=== PATIENT | female | born 1975 | race Two or more races ===

== ENCOUNTER 2019-04-12 21:13 | Emergency (ER) | payer SELFPAY ==
[~2019-04-12] VITALS: Ht 157.5 cm; Wt 72.5 kg
[2019-04-12] MEDS ORDERED: SODIUM CHLORIDE 0.9% 1,000 ML IV ONE (21:30)
[2019-04-13] MEDS ORDERED: SODIUM CHLORIDE 0.9% 1,000 ML IV ONE (06:00)
[2019-04-13 06:51] LABS: BASOPHILS % (AUTO) 0.7 % (0.0-2.0); EOSINOPHILS % (AUTO) 3.8 % (1.0-6.0); HEMATOCRIT 36.9 % (36-46); HEMOGLOBIN 12.3 g/dL (12.0-16.0); LYMPHOCYTES # (AUTO) 1.6 K/uL (1.0-4.8); LYMPHOCYTES % (AUTO) 29.1 % (22.0-44.0); MEAN CORPUSCULAR HEMOGLOBIN 26.9 pg (26.0-34.0); MEAN CORPUSCULAR HGB CONC 33.3 G/dL (31.0-37.0); MEAN CORPUSCULAR VOLUME 81 fL (80-100); MONOCYTES # (AUTO) 0.5 K/uL (0.1-1.0); MONOCYTES % (AUTO) 9.1 % (2.0-9.0); NEUTROPHILS # (AUTO) 3.2 K/uL (1.8-7.7); NEUTROPHILS % (AUTO) 57.3 % (40.0-70.0); PLATELET COUNT (AUTO) 162 K/uL (150-450); RED BLOOD CELL COUNT(AUTO) 4.58 MIL/uL (4.00-5.20); RED CELL DISTRIBUTION WIDTH 13.4 % (11.5-14.5)
[2019-04-13 07:07] LABS: ANION GAP 8 mmol/L (8-16); CARBON DIOXIDE 25 mmol/L (22-29); CHLORIDE 103 mmol/L (98-107); CREATININE 0.89 mg/dL (0.60-1.30); GLOMERULAR FILTR. RATE CALC > 60 mL/min (>60); GLUCOSE,RANDOM 119 mg/dL (70-110); POTASSIUM 3.9 mmol/L (3.5-5.1); SODIUM SERUM 136 mmol/L (136-145); UREA NITROGEN, BLOOD 2 mg/dL (7-18)
[2019-04-13 07:18] LABS: ALANINE AMINOTRANSFERASE 19 U/L (12-78); ALKALINE PHOSPHATASE 115 U/L (46-116); ASPARTATE AMINOTRANSFERASE 28 U/L (15-37); HCG,QUANTITATIVE < 1 mIU/mL (0-6); TOTAL PROTEIN, SERUM 6.6 g/dL (6.4-8.2)
[2019-04-13 07:39] LABS: BILIRUBIN,TOTAL 0.5 mg/dL (0.1-1.0)
[2019-04-13 09:40] LABS: APPEARANCE,URINE CLOUDY (CLEAR); BILIRUBIN,URINE NEGATIVE (NEGATIVE); GLUCOSE, URINE (UA) NEGATIVE (NEGATIVE); KETONES,URINE NEGATIVE (NEGATIVE); LEUKOCYTE ESTERASE ,URINE SMALL (NEGATIVE); NITRATE,URINE NEGATIVE (NEGATIVE); OCCULT BLOOD,URINE LARGE (NEGATIVE); PROTEIN,URINE POS 1+ (NEGATIVE); UROBILINOGEN,URINE 0.2 mg/dL (<=1.0)
[2019-04-13 09:45] LABS: AMPHET/METH SCREEN,URINE POSITIVE (NEGATIVE); BARBITURATE SCREEN, URINE NEGATIVE (NEGATIVE); BENZODIAZEPINES SCREEN,URINE NEGATIVE (NEGATIVE); CANNABINOID SCREEN,URINE POSITIVE (NEGATIVE); COCAINE SCREEN,URINE NEGATIVE (NEGATIVE); METHADONE SCREEN, URINE NEGATIVE (NEGATIVE); OPIATE SCREEN,URINE POSITIVE (NEGATIVE)
[2019-04-13] MEDS ORDERED: VANCOMYCIN HCL 1 GM/D5% WATER 200 ML IV ONE (09:45)
[2019-04-13] MEDS ORDERED: ONDANSETRON HCL 4 MG/2 ML VIAL IVP PRN (09:45)
[2019-04-13] MEDS ORDERED: 0.9% SODIUM CHLORIDE 10 ML SYRINGE IVP PRN (09:45)
[2019-04-13] MEDS ORDERED: ACETAMINOPHEN 325 MG TABLET PO PRN (09:45)
[2019-04-13] MEDS ORDERED: ONDANSETRON HCL 4 MG/2 ML VIAL IVP ONE (09:45)
[2019-04-13 09:48] LABS: PHENCYCLIDINE SCREEN,URINE NEGATIVE (NEGATIVE)
[2019-04-13 10:00] VITALS: BP 114/78
[2019-04-13 10:32] LABS: BACTERIA,URINE Few /HPF (None Seen); RBC,URINE 26-50 /HPF (0-2); SQUAMOUS EPITHELIAL CELL,UR Moderate /LPF (None Seen)
== END 2019-04-13 11:24 | disposition left against medical advice (07) ==
LOC: EMS 21:15 → EDBD 21:15 → EMS 04-13 11:24
DX: T40.1X1A Poisoning by heroin, accidental (unintentional), initial encounter (principal); S82.52XA Displaced fracture of medial malleolus of left tibia, initial encounter for closed fracture; L03.311 Cellulitis of abdominal wall; F17.210 Nicotine dependence, cigarettes, uncomplicated; X58.XXXA Exposure to other specified factors, initial encounter; Y93.89 Activity, other specified; Y92.89 Other specified places as the place of occurrence of the external cause; Y99.8 Other external cause status
CPT/HCPCS: 36415; 70450; 72125; 80053; 80307; 81001; 84484; 84702; 85025; 93005; 99285; 99406; G0480; J7030; J3370

== ENCOUNTER 2019-11-25 08:57 | Inpatient (IN) | payer OTHER, SELFPAY ==
[~2019-11-25] VITALS: Ht 162.6 cm; Wt 75.0 kg
[2019-11-25 09:45] LABS: BASOPHILS % (AUTO) 0.6 % (0.0-2.0); EOSINOPHILS % (AUTO) 4.5 % (1.0-6.0); HEMATOCRIT 38.4 % (36-46); HEMOGLOBIN 12.3 g/dL (12.0-16.0); LYMPHOCYTES # (AUTO) 1.2 K/uL (1.0-4.8); LYMPHOCYTES % (AUTO) 24.8 % (22.0-44.0); MEAN CORPUSCULAR HEMOGLOBIN 26.3 pg (26.0-34.0); MEAN CORPUSCULAR HGB CONC 32.2 G/dL (31.0-37.0); MEAN CORPUSCULAR VOLUME 82 fL (80-100); MONOCYTES # (AUTO) 0.4 K/uL (0.1-1.0); MONOCYTES % (AUTO) 8.9 % (2.0-9.0); NEUTROPHILS % (AUTO) 61.2 % (40.0-70.0); PLATELET COUNT (AUTO) 175 K/uL (150-450); RED BLOOD CELL COUNT(AUTO) 4.69 MIL/uL (4.00-5.20)
[2019-11-25 09:54] LABS: ANION GAP 9 mmol/L (8-16); CALCIUM, TOTAL 8.7 mg/dL (8.8-10.5); CARBON DIOXIDE 28 mmol/L (22-29); CHLORIDE 100 mmol/L (98-107); GLOMERULAR FILTR. RATE CALC > 60 mL/min (>60); GLUCOSE,RANDOM 95 mg/dL (70-110); POTASSIUM 3.6 mmol/L (3.5-5.1); SODIUM SERUM 137 mmol/L (136-145); UREA NITROGEN, BLOOD 14 mg/dL (7-18)
[2019-11-25 09:57] LABS: PROTHROMBIN TIME 10.1 SEC (9.4-11.6)
[2019-11-25 09:58] LABS: ALANINE AMINOTRANSFERASE 284 U/L (12-78); ALBUMIN 3.4 g/dL (3.4-5.0); ALKALINE PHOSPHATASE 240 U/L (46-116); ASPARTATE AMINOTRANSFERASE 256 U/L (15-37); BILIRUBIN,TOTAL 0.6 mg/dL (0.1-1.0); CREATINE KINASE, TOTAL ONLY 58 U/L (26-192); LIPASE 81 U/L (73-393); TOTAL PROTEIN, SERUM 7.1 g/dL (6.4-8.2)
[2019-11-25 10:00] LABS: AMMONIA 18 umol/L (11-32); TROPONIN I < 0.02 ng/mL (0.00-0.05)
[2019-11-25 10:11] LABS: B-TYPE NATRIURETIC PEPTIDE 16 pg/mL (0-100)
[2019-11-25] MEDS ORDERED: ACETAMINOPHEN 325 MG TABLET PO PRN (13:00)
[2019-11-25] MEDS ORDERED: 0.9% SODIUM CHLORIDE 10 ML SYRINGE IVP PRN (13:00)
[2019-11-25 13:17] LABS: APPEARANCE,URINE CLOUDY (CLEAR); BILIRUBIN,URINE NEGATIVE (NEGATIVE); GLUCOSE, URINE (UA) NEGATIVE (NEGATIVE); KETONES,URINE NEGATIVE (NEGATIVE); LEUKOCYTE ESTERASE ,URINE MODERATE (NEGATIVE); NITRATE,URINE POSITIVE (NEGATIVE); OCCULT BLOOD,URINE NEGATIVE (NEGATIVE); PH,URINE 6.5 (5.0-8.0); PROTEIN,URINE NEGATIVE (NEGATIVE)
[2019-11-25 13:22] LABS: AMPHET/METH SCREEN,URINE POSITIVE (NEGATIVE); BARBITURATE SCREEN, URINE NEGATIVE (NEGATIVE); BENZODIAZEPINES SCREEN,URINE NEGATIVE (NEGATIVE); CANNABINOID SCREEN,URINE NEGATIVE (NEGATIVE); COCAINE SCREEN,URINE NEGATIVE (NEGATIVE); METHADONE SCREEN, URINE NEGATIVE (NEGATIVE); OPIATE SCREEN,URINE NEGATIVE (NEGATIVE)
[2019-11-25 13:25] LABS: BACTERIA,URINE Many /HPF (None Seen); PHENCYCLIDINE SCREEN,URINE NEGATIVE (NEGATIVE); RBC,URINE 0-2 /HPF (0-2); SQUAMOUS EPITHELIAL CELL,UR Moderate /LPF (None Seen)
[2019-11-25 13:36] VITALS: BP 119/62
[2019-11-25 15:11] VITALS: BP 122/64
[2019-11-25 20:05] VITALS: BP 129/67
[2019-11-25] MEDS ORDERED: SODIUM CHLORIDE 0.9% 500 ML IV ONE (21:28)
[2019-11-25] MEDS: CefTRIAXone 1 GM/DEXTROSE 50 ML IV SCH (21:39)
[2019-11-25] MEDS ORDERED: ZOLPIDEM TARTRATE 5 MG TABLET PO PRN (21:45)
[2019-11-25] MEDS ORDERED: BISACODYL 10 MG RECTAL RECTAL SUPPOSITORY PR PRN (21:45)
[2019-11-25] MEDS ORDERED: MAGNESIUM HYDROXIDE SUSPENSION 30 ML UDCUP PO PRN (21:45)
[2019-11-25] MEDS ORDERED: ONDANSETRON HCL 4 MG/2 ML VIAL IVP PRN (21:45)
[2019-11-25] MEDS: HEPARIN SODIUM,PORCINE 5,000 UNITS/ML VIAL SQ SCH (23:47)
[2019-11-26] MEDS: HEPARIN SODIUM,PORCINE 5,000 UNITS/ML VIAL SQ SCH ×3 (08:00→23:49)
[2019-11-26 08:24] VITALS: BP 134/64
[2019-11-26] MEDS: ACETAMINOPHEN 325 MG TABLET PO PRN ×2 (10:31→16:05)
[2019-11-26] MEDS ORDERED: TraZODone HCL 50 MG TABLET PO PRN (12:00)
[2019-11-26] MEDS ORDERED: MAG HYDROX/AL HYDROX/SIMETH ES 30 ML SUSPENSION UDCUP PO PRN ×2 (12:00)
[2019-11-26] MEDS ORDERED: DICYCLOMINE HCL 10 MG CAPSULE PO PRN (12:00)
[2019-11-26] MEDS ORDERED: IBUPROFEN 600 MG TABLET PO PRN (12:00)
[2019-11-26] MEDS ORDERED: LOPERAMIDE HCL 2 MG/15 ML SUSPENSION UDCUP PO PRN (12:00)
[2019-11-26] MEDS ORDERED: ACETAMINOPHEN 325 MG TABLET PO PRN (12:00)
[2019-11-26] MEDS ORDERED: BACLOFEN 10 MG TABLET PO PRN (12:00)
[2019-11-26] MEDS ORDERED: HydrOXYzine PAMOATE 50 MG CAPSULE PO PRN ×2 (12:00)
[2019-11-26] MEDS ORDERED: PROMETHAZINE HCL 25 MG TABLET PO PRN (12:00)
[2019-11-26] MEDS ORDERED: CloNIDine HCL 0.1 MG TABLET PO PRN ×2 (12:00)
[2019-11-26 12:10] VITALS: BP 124/72
[2019-11-26 12:15] VITALS: BP 124/72
[2019-11-26] MEDS: CloNIDine HCL 0.1 MG TABLET PO SCH ×3 (12:15→23:49)
[2019-11-26] MEDS: IBUPROFEN 600 MG TABLET PO PRN ×2 (12:15→20:40)
[2019-11-26] MEDS: LORazepam 1 MG TABLET PO PRN (12:15)
[2019-11-26] MEDS: SODIUM CHLORIDE 0.45% 1,000 ML IV SCH (12:15)
[2019-11-26 12:57] LABS: BASOPHILS % (AUTO) 0.3 % (0.0-2.0); EOSINOPHILS % (AUTO) 1.8 % (1.0-6.0); HEMATOCRIT 38.4 % (36-46); HEMOGLOBIN 12.4 g/dL (12.0-16.0); LYMPHOCYTES # (AUTO) 1.1 K/uL (1.0-4.8); LYMPHOCYTES % (AUTO) 16.9 % (22.0-44.0); MEAN CORPUSCULAR HEMOGLOBIN 26.4 pg (26.0-34.0); MEAN CORPUSCULAR HGB CONC 32.4 G/dL (31.0-37.0); MEAN CORPUSCULAR VOLUME 81 fL (80-100); MONOCYTES # (AUTO) 0.4 K/uL (0.1-1.0); MONOCYTES % (AUTO) 6.2 % (2.0-9.0); NEUTROPHILS # (AUTO) 4.8 K/uL (1.8-7.7); NEUTROPHILS % (AUTO) 74.8 % (40.0-70.0); PLATELET COUNT (AUTO) 193 K/uL (150-450); RED BLOOD CELL COUNT(AUTO) 4.71 MIL/uL (4.00-5.20); RED CELL DISTRIBUTION WIDTH 17.7 % (11.5-14.5)
[2019-11-26 13:03] LABS: ANION GAP 5 mmol/L (8-16); CALCIUM, TOTAL 8.8 mg/dL (8.8-10.5); CARBON DIOXIDE 28 mmol/L (22-29); CHLORIDE 100 mmol/L (98-107); CREATININE 0.94 mg/dL (0.60-1.30); GLOMERULAR FILTR. RATE CALC > 60 mL/min (>60); GLUCOSE,RANDOM 164 mg/dL (70-110); POTASSIUM 4.4 mmol/L (3.5-5.1); SODIUM SERUM 133 mmol/L (136-145); UREA NITROGEN, BLOOD 17 mg/dL (7-18)
[2019-11-26 13:09] LABS: ALANINE AMINOTRANSFERASE 177 U/L (12-78); ALBUMIN 3.4 g/dL (3.4-5.0); ALKALINE PHOSPHATASE 214 U/L (46-116); ASPARTATE AMINOTRANSFERASE 85 U/L (15-37); BILIRUBIN,TOTAL 0.3 mg/dL (0.1-1.0); TOTAL PROTEIN, SERUM 7.2 g/dL (6.4-8.2)
[2019-11-26 15:59] VITALS: BP 139/70
[2019-11-26 20:00] VITALS: BP 127/83
[2019-11-26 20:05] VITALS: BP 127/83
[2019-11-26] MEDS: CefTRIAXone 1 GM/DEXTROSE 50 ML IV SCH (20:38)
[2019-11-27] MEDS: LORazepam 1 MG TABLET PO PRN ×2 (02:56→10:27)
[2019-11-27 04:28] VITALS: BP 124/77
[2019-11-27] MEDS: CloNIDine HCL 0.1 MG TABLET PO SCH ×4 (05:24→21:50)
[2019-11-27] MEDS: HEPARIN SODIUM,PORCINE 5,000 UNITS/ML VIAL SQ SCH ×3 (08:00→23:35)
[2019-11-27 08:12] VITALS: BP 115/70
[2019-11-27 12:17] VITALS: BP 121/84
[2019-11-27] MEDS ORDERED: LevETIRAcetam 1,000 MG in DEXTROSE 5%-WATER 100 ML IV SCH (14:00)
[2019-11-27] MEDS ORDERED: VANCOMYCIN HCL 1 GM/D5% WATER 200 ML IV SCH (14:15)
[2019-11-27] MEDS: SODIUM CHLORIDE 0.45% 1,000 ML IV SCH ×3 (14:36→17:28)
[2019-11-27] MEDS ORDERED: VANCOMYCIN HCL 1 GM/D5% WATER 200 ML IV ONE ×2 (15:00→22:00)
[2019-11-27] MEDS: LevETIRAcetam 500 MG TABLET PO SCH ×3 (15:12→21:49)
[2019-11-27] MEDS ORDERED: LORazepam 2 MG/ML VIAL IM ONE ×2 (15:30)
[2019-11-27 16:45] VITALS: BP 126/96
[2019-11-27] MEDS: ChlordiazePOXIDE HCL 25 MG CAPSULE PO SCH (17:27)
[2019-11-27] MEDS: LORazepam 2 MG/ML VIAL IVP PRN (17:28)
[2019-11-27 20:14] VITALS: BP 117/78
[2019-11-27] MEDS: TraZODone HCL 100 MG TABLET PO SCH (21:50)
[2019-11-28] VITALS (7 sets, daily range): BP systolic 103–136; BP diastolic 55–78
[2019-11-28] MEDS: ChlordiazePOXIDE HCL 25 MG CAPSULE PO SCH ×5 (06:00→22:59)
[2019-11-28] MEDS: CloNIDine HCL 0.1 MG TABLET PO SCH ×4 (06:00→20:21)
[2019-11-28 06:34] LABS: ANION GAP 7 mmol/L (8-16); CARBON DIOXIDE 27 mmol/L (22-29); CHLORIDE 102 mmol/L (98-107); CREATININE 0.87 mg/dL (0.60-1.30); GLOMERULAR FILTR. RATE CALC > 60 mL/min (>60); GLUCOSE,RANDOM 103 mg/dL (70-110); POTASSIUM 3.5 mmol/L (3.5-5.1); SODIUM SERUM 136 mmol/L (136-145); UREA NITROGEN, BLOOD 14 mg/dL (7-18)
[2019-11-28] MEDS ORDERED: VANCOMYCIN HCL 1.25 GM in DEXTROSE 5%-WATER 250 ML IV SCH (08:00)
[2019-11-28] MEDS: HEPARIN SODIUM,PORCINE 5,000 UNITS/ML VIAL SQ SCH ×3 (08:00→23:08)
[2019-11-28] MEDS: MULTIVITAMINS, THERAPEUTIC TABLET PO SCH (09:00)
[2019-11-28] MEDS ORDERED: THIAMINE 100 MG TABLET PO SCH (09:00)
[2019-11-28] MEDS ORDERED: FOLIC ACID 1 MG TABLET PO SCH (09:00)
[2019-11-28] MEDS ORDERED: VANCOMYCIN HCL 1 GM/D5% WATER 200 ML IV PRN (10:30)
[2019-11-28] MEDS ORDERED: LORazepam 2 MG/ML VIAL IM ONE (12:00)
[2019-11-28] MEDS: LevETIRAcetam 500 MG TABLET PO SCH ×2 (12:30→21:00)
[2019-11-28] MEDS ORDERED: VANCOMYCIN HCL 1 GM/D5% WATER 200 ML IV ONE (13:15)
[2019-11-28] MEDS ORDERED: SODIUM CHLORIDE 0.9% 250 ML IV ONE (15:01)
[2019-11-28] MEDS: SODIUM CHLORIDE 0.45% 1,000 ML IV SCH (17:51)
[2019-11-28] MEDS: VANCOMYCIN HCL 1 GM/D5% WATER 200 ML IV SCH (20:22)
[2019-11-28] MEDS: TraZODone HCL 100 MG TABLET PO SCH (20:25)
[2019-11-28] MEDS: LORazepam 2 MG/ML VIAL IVP PRN (22:01)
[2019-11-29] MEDS: CloNIDine HCL 0.1 MG TABLET PO SCH ×3 (06:00→12:00)
[2019-11-29] MEDS: ChlordiazePOXIDE HCL 25 MG CAPSULE PO SCH ×2 (06:00→06:14)
[2019-11-29 06:20] VITALS: BP 131/74
[2019-11-29] MEDS: VANCOMYCIN HCL 1 GM/D5% WATER 200 ML IV SCH (08:00)
[2019-11-29] MEDS: HEPARIN SODIUM,PORCINE 5,000 UNITS/ML VIAL SQ SCH (08:00)
[2019-11-29] MEDS: MULTIVITAMINS, THERAPEUTIC TABLET PO SCH (09:00)
[2019-11-29] MEDS: LevETIRAcetam 500 MG TABLET PO SCH (09:00)
[2019-11-29 11:30] VITALS: BP 99/67
[2019-11-29] MEDS ORDERED: ChlordiazePOXIDE HCL 10 MG CAPSULE PO SCH (16:00)
== END 2019-11-29 12:25 | disposition left against medical advice (07) | DRG 92 ==
LOC: EMS 08:58 → UNDOADMIN 13:30 → 6S 13:30 → 5S 11-27 16:21
PROVIDERS: ADMIT Hospitalist; ATTEND Hospitalist
DX: G92 Toxic encephalopathy (principal); N39.0 Urinary tract infection, site not specified; M25.529 Pain in unspecified elbow; M25.551 Pain in right hip; R79.89 Other specified abnormal findings of blood chemistry; F10.20 Alcohol dependence, uncomplicated; B95.2 Enterococcus as the cause of diseases classified elsewhere; N20.0 Calculus of kidney; R56.9 Unspecified convulsions; Z91.19 Patient's noncompliance with other medical treatment and regimen; F11.90 Opioid use, unspecified, uncomplicated
CPT/HCPCS: 70450; 72170; 74176; 76770; 87086; 93005; G0480; J0696; J0712; J1644; J2060; J3370; J7040; J7050; J7060; 36415-L1; 36415-TC; 71045-TC; 84703-TC